=== PATIENT | female | born 1960 | race Caucasian/White ===

== ENCOUNTER 2016-06-24 07:22 | Emergency (ER) | payer MEDICARE, OTHER ==
[2016-06-24] MEDS ORDERED: TRAMADOL 50 MG TAB ONE (08:41)
== END 2016-06-24 08:45 | disposition home or self-care (01) ==
LOC: ER 07:22
DX: S30.860A Insect bite (nonvenomous) of lower back and pelvis, initial encounter (principal); L03.317 Cellulitis of buttock; W57.XXXA Bitten or stung by nonvenomous insect and other nonvenomous arthropods, initial encounter